=== PATIENT | female | born 1940 | race Caucasian/White ===

== ENCOUNTER 2017-10-07 18:45 | Emergency (ER) | payer MEDICARE ==
[~2017-10-07] VITALS: Ht 152.4 cm; Wt 74.8 kg
[2017-10-07 18:49] VITALS: BP_SYST 213
[2017-10-07] MEDS ORDERED: CLOP75TA2 PO (19:06)
[2017-10-07] MEDS ORDERED: GABA-529 PO (19:06)
[2017-10-07] MEDS ORDERED: HYDR100T25 PO (19:06)
[2017-10-07] MEDS ORDERED: SEVE800T10 PO (19:06)
[2017-10-07] MEDS ORDERED: ISOS60TA4 PO (19:06)
[2017-10-07] MEDS ORDERED: CARV25TA55 PO (19:06)
[2017-10-07] MEDS ORDERED: EPOE20006 IJ (19:06)
[2017-10-07] MEDS ORDERED: NEPH PO (19:06)
[2017-10-07] MEDS ORDERED: ERGO500043 PO (19:06)
[2017-10-07] MEDS ORDERED: ACET325T53 PO (19:06)
[2017-10-07] MEDS ORDERED: MEGE40TA PO (19:06)
[2017-10-07] MEDS ORDERED: DOXA4TAB3 PO (19:06)
[2017-10-07] MEDS ORDERED: cefTRIAXone 1 GM IVPB PREMIX 50 ML IV ONE ×2 (19:15→21:00)
[2017-10-07 19:17] LABS: BASOPHILS % (AUTO) 0.5 % (0.0-2.0); EOSINOPHILS % (AUTO) 0.6 % (0.0-4.0); HEMATOCRIT 32.8 % (36-48); HEMOGLOBIN 10.3 g/dL (12.0-16.0); LYMPHOCYTES # (AUTO) 1.6 K/uL (1.0-5.5); LYMPHOCYTES % (AUTO) 18.9 % (20.5-51.5); MEAN CORPUSCULAR HEMOGLOBIN 29 pg (27-31); MEAN CORPUSCULAR HGB CONC 32 % (32-36); MEAN CORPUSCULAR VOLUME 91 fL (79.0-98.0); MONOCYTES # (AUTO) 0.8 K/uL (0.0-1.0); MONOCYTES % (AUTO) 9.5 % (1.7-9.3); NEUTROPHILS # (AUTO) 5.9 K/uL (1.8-7.7); NEUTROPHILS % (AUTO) 70.5 % (40.0-70.0); PLATELET COUNT (AUTO) 270 K/uL (130-430); RED BLOOD CELL COUNT(AUTO) 3.61 MIL/uL (4.2-6.2); RED CELL DISTRIBUTION WIDTH 18.2 % (9.0-15.0); WHITE BLOOD COUNT (AUTO) 8.3 K/uL (4.8-10.8)
[2017-10-07 19:24] LABS: BILIRUBIN,URINE NEGATIVE (NEGATIVE); BLOOD, URINE 2+ (NEGATIVE); CLARITY/URINE CLOUDY (CLEAR); COLOR,URINE YELLOW (YELLOW); GLUCOSE,URINE NEGATIVE (NEGATIVE); KETONES,URINE TRACE (NEGATIVE); LEUKOCYTE ESTERASE ,URINE 3+ (NEGATIVE); NITRITE, URINE NEGATIVE (NEGATIVE); PROTEIN URINE 3+ (NEGATIVE); UROBILINOGEN,URINE 0.2 (0.2-1.0)
[2017-10-07 19:34] LABS: ANION GAP 11 (5-15); CALCIUM 8.3 mg/dL (8.4-11.0); CHLORIDE 104 mmol/L (98-107); CREATININE 3.63 mg/dL (0.55-1.30); GLUCOSE 136 mg/dL (70-99); POTASSIUM 3.6 mmol/L (3.5-5.1); SODIUM SERUM 140 mmol/L (136-145); UREA NITROGEN, BLOOD 19 mg/dL (8-21)
[2017-10-07 19:38] LABS: BACTERIA,URINE MANY /HPF (None Seen); MUCUS,URINE None Seen /LPF (None Seen); WBC,URINE >100 /HPF (0-3)
[2017-10-07 19:38] LABS: ALANINE AMINOTRANSFERASE 11 U/L (12-78); ALBUMIN 2.1 g/dL (3.4-4.8); ASPARTATE AMINOTRANSFERASE 23 U/L (10-37); TOTAL BILIRUBIN 0.5 mg/dL (0.0-1.0)
[2017-10-07 19:42] LABS: PROTHROMBIN TIME 10.3 SECS (9.5-12.5)
[2017-10-07] MEDS ORDERED: ASPIRIN 325 MG TABLET PO ONE (20:30)
[2017-10-07] MEDS ORDERED: hydrALAZINE HCL 20 MG/ML VIAL IVP ONE (20:30)
[2017-10-07] MEDS ORDERED: ENALAPRILAT DIHYDRATE 1.25 MG/ML VIAL IVP ONE (20:30)
[2017-10-07] MEDS ORDERED: VANCOMYCIN HCL 1,000 MG in NS 250 ML IV ONE (20:30)
[2017-10-07] MEDS ORDERED: cefTRIAXone 2 GM VIAL ONE (20:31)
[2017-10-07] MEDS ORDERED: VANCOMYCIN HCL 1000 MG/VIAL IV ONE (20:43)
[2017-10-08 00:39] VITALS: BP_SYST 183
== END 2017-10-08 00:39 | disposition short-term general hospital (02) ==
LOC: SED 18:45
DX: I21.4 Non-ST elevation (NSTEMI) myocardial infarction (principal); N39.0 Urinary tract infection, site not specified; J18.9 Pneumonia, unspecified organism; R55 Syncope and collapse; K21.9 Gastro-esophageal reflux disease without esophagitis; I12.0 Hypertensive chronic kidney disease with stage 5 chronic kidney disease or end stage renal disease; E11.22 Type 2 diabetes mellitus with diabetic chronic kidney disease; N18.6 End stage renal disease; M19.90 Unspecified osteoarthritis, unspecified site; Z99.2 Dependence on renal dialysis; Z90.49 Acquired absence of other specified parts of digestive tract; Z90.89 Acquired absence of other organs; Z90.710 Acquired absence of both cervix and uterus; Z88.8 Allergy status to other drugs, medicaments and biological substances
CPT/HCPCS: 36415; 36600; 70450; 71045; 80053; 81000; 82803; 83605; 83880; 84484; 85025; 85610; 85730; 87040; 87086; 87186; 93005; 96365; 96366; 96367; 96375; 99291; J0360; J0696 ×2; J3370; 99285